=== PATIENT | female | born 1980 | race Hispanic/Latino ===

== ENCOUNTER → 2016-08-16 | Day surgery (SDC) | payer OTHER ==
[~2016-08-16] VITALS: Ht 160 cm; Wt 108.9 kg
--- NOTE | 2016-08-16 14:51 | Operative Report ---
Operative/Inv Procedure Report Surgery Date: 08/16/16 Name of Procedure: excision 7cm subcutaneous neck lipoma Pre-Operative Diagnosis: lipoma Post-Operative Diagnosis: same Estimated Blood Loss: scant Surgeon/Dealmaker: FRANKO RAMSEY,JULIO Bran/arlette chand Anesthesia: local monitored anesthesi Specimens: 7cm lipoma Operative/Procedure Note Note: after consent, reji to OR and laid prone. Neck prepped and draped. Skin overlying mass infiltrated with local anesthesia. Skin incised sharply. Mass was encountered in deep sq plane. It was excised with sharp and cautery dissection. It was multilobulated, extending in three different areas. The entire multilobulated mass was excised through on incision. After resection, the specime passed off the field. Wound irrigated with saline and hemostatis achieved with cautery. The incision was closed in layers of vicryl suture and sealed with skin glue.
== END ==
LOC: STS 04:28
DX: D17.0 Benign lipomatous neoplasm of skin and subcutaneous tissue of head, face and neck (principal); J45.909 Unspecified asthma, uncomplicated
CPT/HCPCS: 81025; 88304; J2250; J2405